=== PATIENT | female | born 1965 | race Caucasian/White ===

== ENCOUNTER 2021-04-18 16:25 | Emergency (ER) | payer BC ==
[~2021-04-18] VITALS: Ht 162.6 cm; Wt 86.9 kg
[2021-04-18 16:57] LABS: BASOPHILS % (AUTO) 0.8 % (0-1); EOSINOPHILS # (AUTO) 0.1 X10'3 (0-0.9); EOSINOPHILS % (AUTO) 2.1 % (0-6); HEMATOCRIT 42.4 % (35.0-45.0); HEMOGLOBIN 14.5 g/dl (12.0-16.0); LYMPHOCYTES # (AUTO) 1.2 X10'3 (1.1-4.8); LYMPHOCYTES % (AUTO) 28.5 % (21-51); MEAN CORPUSCULAR HEMOGLOBIN 32.4 PG (27.0-31.0); MEAN CORPUSCULAR HGB CONC 34.1 g/dL (33.0-36.5); MEAN CORPUSCULAR VOLUME 95.1 FL (78-98); MEAN PLATELET VOLUME 9.1 FL (7.4-10.4); MONOCYTES # (AUTO) 0.4 X10'3 (0-0.9); MONOCYTES % (AUTO) 9.2 % (2-12); NEUTROPHILS # (AUTO) 2.5 X10'3 (1.8-7.7); NEUTROPHILS % (AUTO) 59.4 % (42-75); PLATELET COUNT 241 X10'3 (140-440); RED BLOOD COUNT 4.46 X10'6 (4.20-5.60); WHITE BLOOD COUNT 4.3 X10'3 (4.5-11.0)
[2021-04-18 17:18] VITALS: BP 167/101
[2021-04-18 17:29] LABS: ALANINE AMINOTRANSFERASE 43 U/L (12-78); ALBUMIN 4.1 G/DL (3.4-5.0); ALBUMIN/GLOBULIN RATIO 1.2 (1.1-1.5); ALKALINE PHOSPHATASE 62 IU/L (46-116); ANION GAP 8 (8-16); ASPARTATE AMINO TRANSFERASE 21 U/L (10-37); BILIRUBIN,TOTAL 0.3 MG/DL (0.1-1.0); BLOOD UREA NITROGEN 10 MG/DL (7-18); BUN/CREATININE RATIO 13.9 (6.6-38.0); CALCIUM 9.2 MG/DL (8.5-10.1); CHLORIDE 107 MMOL/L (99-107); CREATININE 0.72 MG/DL (0.40-0.90); GLUCOSE 104 MG/DL (70-104); POTASSIUM 4.1 MMOL/L (3.5-5.1); SODIUM 144 MMOL/L (135-145); TOTAL PROTEIN 7.4 G/DL (6.4-8.2); eGFR 83 ML/MIN
[2021-04-18] MEDS ORDERED: LISI10TA27 PO (17:43)
== END 2021-04-18 18:56 | disposition home or self-care (01) ==
LOC: ER 16:25
DX: I10 Essential (primary) hypertension (principal); R42 Dizziness and giddiness; R51.9 Headache, unspecified; E86.0 Dehydration; Z98.890 Other specified postprocedural states; Z79.899 Other long term (current) drug therapy
CPT/HCPCS: 36415; 71045; 80053; 83880; 84484; 85025; 93005; 99285

== ENCOUNTER 2021-05-03 12:30 | Inpatient (IN) | payer BC ==
[~2021-05-03] VITALS: Ht 162.6 cm; Wt 86.8 kg
[~2021-05-03 12:30] MED LIST: LISI10TA27 PO
[2021-05-03 13:27] LABS: BASOPHILS % (AUTO) 0.5 % (0-1); EOSINOPHILS # (AUTO) 0.1 X10'3 (0-0.9); EOSINOPHILS % (AUTO) 0.9 % (0-6); HEMATOCRIT 43.1 % (35.0-45.0); HEMOGLOBIN 14.8 g/dl (12.0-16.0); LYMPHOCYTES # (AUTO) 1.1 X10'3 (1.1-4.8); LYMPHOCYTES % (AUTO) 17.5 % (21-51); MEAN CORPUSCULAR HEMOGLOBIN 32.3 PG (27.0-31.0); MEAN CORPUSCULAR HGB CONC 34.3 g/dL (33.0-36.5); MEAN CORPUSCULAR VOLUME 94.3 FL (78-98); MEAN PLATELET VOLUME 9.5 FL (7.4-10.4); MONOCYTES # (AUTO) 0.4 X10'3 (0-0.9); MONOCYTES % (AUTO) 6.6 % (2-12); NEUTROPHILS # (AUTO) 4.7 X10'3 (1.8-7.7); NEUTROPHILS % (AUTO) 74.5 % (42-75); PLATELET COUNT 266 X10'3 (140-440); RED BLOOD COUNT 4.57 X10'6 (4.20-5.60); RED CELL DISTRIBUTION WIDTH 11.9 % (11.5-14.5); WHITE BLOOD COUNT 6.3 X10'3 (4.5-11.0)
[2021-05-03 13:44] LABS: ALANINE AMINOTRANSFERASE 28 U/L (12-78); ALBUMIN 4.2 G/DL (3.4-5.0); ALBUMIN/GLOBULIN RATIO 1.2 (1.1-1.5); ALKALINE PHOSPHATASE 64 IU/L (46-116); ANION GAP 7 (8-16); ASPARTATE AMINO TRANSFERASE 16 U/L (10-37); BILIRUBIN,TOTAL 0.5 MG/DL (0.1-1.0); BLOOD UREA NITROGEN 15 MG/DL (7-18); BUN/CREATININE RATIO 19.7 (6.6-38.0); CALCIUM 8.9 MG/DL (8.5-10.1); CHLORIDE 106 MMOL/L (99-107); CREATININE 0.76 MG/DL (0.40-0.90); GLUCOSE 103 MG/DL (70-104); SODIUM 142 MMOL/L (135-145); TOTAL CARBON DIOXIDE 28.8 MMOL/L (24-32); TOTAL PROTEIN 7.7 G/DL (6.4-8.2); eGFR 78 ML/MIN
[2021-05-03] MEDS ORDERED: nitroGLYCERIN 0.4mg SUBLingual tab SL PRN ×2 (13:50→14:40)
[2021-05-03] MEDS ORDERED: aspirin 81mg tab.chew PO ONE (13:50)
[2021-05-03] MEDS ORDERED: LISI10TA27 PO (14:26)
[2021-05-03] MEDS ORDERED: ALPRAZolam 0.25mg tablet PO PRN (14:40)
[2021-05-03] MEDS ORDERED: regadenoson 0.4mg/5ml syringe IV ONE (14:40)
[2021-05-03] MEDS ORDERED: magnesium Cl slow-release 64mg tablet PO PRN (14:40)
[2021-05-03] MEDS ORDERED: magnesium 2GM in 50ml NS 50 ML IV PRN (14:40)
[2021-05-03] MEDS ORDERED: potassium Cl 40MEQ/1/2NS 520ml 520 ML IV PRN ×2 (14:40)
[2021-05-03] MEDS ORDERED: ondansetron/PF 4mg/2ml inj IV PRN (14:40)
[2021-05-03] MEDS ORDERED: HYDROcodone/acetaminophen 5mg/325mg tablet PO PRN (14:40)
[2021-05-03] MEDS ORDERED: acetaminophen 325mg tablet PO PRN ×2 (14:40)
[2021-05-03] MEDS ORDERED: aminophylline 250mg/10ml inj. IV PRN (14:40)
[2021-05-03] MEDS ORDERED: morphine 2 MG/ML inj. syringe IV PRN (14:40)
[2021-05-03] MEDS ORDERED: mag hydrox/Alum hydrox/simeth 30ml oral suspension PO PRN (14:40)
[2021-05-03] MEDS ORDERED: metoprolol tartrate 1mg/ml inj IV PRN (14:40)
[2021-05-03] MEDS ORDERED: magnesium hydroxide 30ml (MOM) UD suspension PO PRN (14:40)
[2021-05-03] MEDS ORDERED: potassium Cl 20 mEq SR tablet PO PRN ×2 (14:40)
[2021-05-03] MEDS ORDERED: magnesium 4gm in 100ml NS 100 ML IV PRN (14:40)
[2021-05-03] MEDS: pantoprazole 40mg Tablet.DR PO SCH (15:35)
[2021-05-03] MEDS: normal saline 1000ml 1,000 ML IV SCH (15:37)
[2021-05-03] MEDS ORDERED: regadenoson 0.4mg/5ml syringe IV PRN (16:15)
[2021-05-03] MEDS ORDERED: K and/or MAG REPLACEMENT MC SCH (20:00)
[2021-05-03] MEDS: heparin, porcine 5000 units/ml vial SQ SCH (20:41)
[2021-05-03] MEDS ORDERED: temazepam 15mg capsule PO PRN (21:00)
--- NOTE | 2021-05-03 23:00 | NUR ---
Patient in room PCU 3024. I have received report from JOSÉ DE DIOS and had the opportunity to ask questions and assume patient care.
[2021-05-03 23:37] VITALS: BP 130/67
[2021-05-04] VITALS (9 sets, daily range): BP systolic 115–147; BP diastolic 60–70
[2021-05-04 01:41] LABS: EOSINOPHILS # (AUTO) 0.1 X10'3 (0-0.9); EOSINOPHILS % (AUTO) 2.6 % (0-6); HEMOGLOBIN 13.5 g/dl (12.0-16.0); MEAN CORPUSCULAR HEMOGLOBIN 32.1 PG (27.0-31.0); MONOCYTES # (AUTO) 0.3 X10'3 (0-0.9); RED CELL DISTRIBUTION WIDTH 11.9 % (11.5-14.5)
[2021-05-04 01:43] LABS: BASOPHILS % (AUTO) 0.9 % (0-1); HEMATOCRIT 39.1 % (35.0-45.0); LYMPHOCYTES # (AUTO) 1.1 X10'3 (1.1-4.8); LYMPHOCYTES % (AUTO) 33.1 % (21-51); MEAN CORPUSCULAR HGB CONC 34.6 g/dL (33.0-36.5); MEAN CORPUSCULAR VOLUME 92.7 FL (78-98); MEAN PLATELET VOLUME 9.9 FL (7.4-10.4); MONOCYTES % (AUTO) 9.6 % (2-12); NEUTROPHILS # (AUTO) 1.8 X10'3 (1.8-7.7); NEUTROPHILS % (AUTO) 53.8 % (42-75); PLATELET COUNT 193 X10'3 (140-440); RED BLOOD COUNT 4.22 X10'6 (4.20-5.60); WHITE BLOOD COUNT 3.4 X10'3 (4.5-11.0)
[2021-05-04 01:57] LABS: ALBUMIN 3.5 G/DL (3.4-5.0); ANION GAP 10 (8-16); BLOOD UREA NITROGEN 16 MG/DL (7-18); BUN/CREATININE RATIO 21.6 (6.6-38.0); CALCIUM 8.3 MG/DL (8.5-10.1); CHLORIDE 108 MMOL/L (99-107); CREATININE 0.74 MG/DL (0.40-0.90); GLUCOSE 98 MG/DL (70-104); MAGNESIUM 1.9 MG/DL (1.5-2.4); POTASSIUM 3.5 MMOL/L (3.5-5.1); SODIUM 144 MMOL/L (135-145); TOTAL CARBON DIOXIDE 26.1 MMOL/L (24-32); eGFR 81 ML/MIN
[2021-05-04] MEDS: normal saline 1000ml 1,000 ML IV SCH (05:08)
--- NOTE | 2021-05-04 06:00 | NUR ---
Patient in room PCU 3014. I have received report from edda zelaya and had the opportunity to ask questions and assume patient care.
--- NOTE | 2021-05-04 06:26 | NUR ---
Problems reprioritized. Patient report given, questions answered & plan of care reviewed with GEETA DE DIOS.
--- NOTE | 2021-05-04 06:30 | NUR ---
0630 denies any c/p , sob, n or vomiting currently.
--- NOTE | 2021-05-04 08:15 | NUR ---
to nuc med with Ryan via W/C a/ox4 in no distress.
[2021-05-04] MEDS: pantoprazole 40mg Tablet.DR PO SCH (12:22)
[2021-05-04] MEDS: heparin, porcine 5000 units/ml vial SQ SCH (12:23)
--- NOTE | 2021-05-04 12:35 | NUR ---
results of catrachita available- MD Mauricio notified. awaiting clearnce to resume diet or not
[2021-05-04] MEDS ORDERED: PANT40TA54 PO (12:39)
[2021-05-04] MEDS ORDERED: ACET-1008 PO (12:40)
--- NOTE | 2021-05-04 12:57 | NUR ---
AGER ID: [phone] MESSAGE: [id number] Julianne Viola Lazar results are up. Please let me know if she can eat. Thanks- [id number] Dischargf eorders were noted shortly after sending this page
--- NOTE | 2021-05-04 14:47 | NUR ---
reviewed discharge instructions, answered questions, iv removed and cath intact. pt is looking forward to going home she says. tele removed, pt dressed self i and contacted he ride. vss a/x3, deny pain or symptoms. Edu to return to er if symptoms [place] return
--- NOTE | 2021-05-04 15:00 | NUR ---
MD chavez rounded to see pt, instructed to add orders for nitro and discussed catrachita scan with pt then called md chacko about dc and catrachita results. md chavez ok'd dc home now. pt stable.
[2021-05-04] MEDS ORDERED: NITR0.4T51 SL (15:16)
--- NOTE | 2021-05-04 15:37 | NUR ---
dc to car now
== END 2021-05-04 15:40 | disposition home or self-care (01) | DRG 311 ==
LOC: ER 12:31 → ED HOLD 14:43 → PCU 3S 23:15
PROVIDERS: ADMIT Internal Medicine; ATTEND Internal Medicine
PROC: 4A02XM4 Measurement of Cardiac Total Activity, External Approach (ICD-10-PCS; principal; 2021-05-04)
PROC: 3E073KZ Introduction of Other Diagnostic Substance into Coronary Artery, Percutaneous Approach (ICD-10-PCS; 2021-05-04)
DX: I20.9 Angina pectoris, unspecified (principal); F32.9 Major depressive disorder, single episode, unspecified; F41.9 Anxiety disorder, unspecified; R42 Dizziness and giddiness; I10 Essential (primary) hypertension; Z60.9 Problem related to social environment, unspecified; Z20.822 Contact with and (suspected) exposure to COVID-19; I25.2 Old myocardial infarction; Z73.3 Stress, not elsewhere classified
CPT/HCPCS: 36415; 71045; 78452; 80048; 80053; 83735; 83880; 84484; 85025; 87081; 87635; 93005; 93017; 93306; 99285; A9500; G0378; J0280; J1644; J7030

== ENCOUNTER 2022-04-28 11:06 | Emergency (ER) | payer BC ==
[~2022-04-28] VITALS: Ht 162.6 cm; Wt 90.9 kg
[~2022-04-28 11:06] MED LIST changes: +PANT40TA54 PO
[2022-04-28 11:13] VITALS: BP 138/82
[2022-04-28] MEDS ORDERED: GABA-530 PO (11:46)
[2022-04-28] MEDS ORDERED: VALA100031 PO (11:46)
== END 2022-04-28 15:32 | disposition home or self-care (01) ==
LOC: ER 11:06
DX: B02.9 Zoster without complications (principal)
CPT/HCPCS: 99283

== ENCOUNTER 2023-03-30 10:52 | Emergency (ER) | payer BC ==
[~2023-03-30] VITALS: Ht 160 cm; Wt 89.2 kg
[~2023-03-30 10:52] MED LIST changes: +GABA-530 PO; +VALA100031 PO
[2023-03-30 11:00] VITALS: BP 151/96; PULSE 69; RESP 18; TEMP 98.4; O2SAT 95
[2023-03-30] MEDS ORDERED: ALBU18HF2 INH (11:26)
[2023-03-30] MEDS ORDERED: PRED10TA23 PO (11:26)
[2023-03-30] MEDS ORDERED: AMOX-117 PO (11:26)
[2023-03-30] MEDS ORDERED: ONDA8TAB13 PO (11:26)
[2023-03-30] MEDS ORDERED: CIPR7.5D LEFT EAR (11:26)
== END 2023-03-30 12:29 | disposition home or self-care (01) ==
LOC: ER 10:52
DX: H72.92 Unspecified perforation of tympanic membrane, left ear (principal); J01.10 Acute frontal sinusitis, unspecified; R05.3 Chronic cough; I10 Essential (primary) hypertension; Z79.899 Other long term (current) drug therapy; Z79.2 Long term (current) use of antibiotics
CPT/HCPCS: 99283

== ENCOUNTER 2023-12-16 12:13 | Emergency (ER) | payer BC, OTHER ==
[~2023-12-16] VITALS: Ht 160 cm; Wt 93.9 kg
[~2023-12-16 12:13] MED LIST changes: +ALBU18HF2 INH; +CIPR7.5D LEFT EAR; +ONDA8TAB13 PO
[2023-12-16 12:16] VITALS: BP 143/92; PULSE 67; RESP 16; TEMP 98; O2SAT 94
[2023-12-16] MEDS ORDERED: NAPR-56 PO (13:03)
== END 2023-12-16 13:21 | disposition home or self-care (01) ==
LOC: ER 12:13
DX: S83.92XA Sprain of unspecified site of left knee, initial encounter (principal); I10 Essential (primary) hypertension; W22.8XXA Striking against or struck by other objects, initial encounter; Y93.89 Activity, other specified; Y92.89 Other specified places as the place of occurrence of the external cause; Y99.0 Civilian activity done for income or pay
CPT/HCPCS: 29505; 73564; 99283